=== PATIENT | female | born 1980 | race African-American/Black ===

== ENCOUNTER 2021-07-04 20:10 | Emergency (ER) | payer BC ==
[~2021-07-04] VITALS: Ht 167.6 cm; Wt 81.6 kg
--- NOTE | 2021-07-04 20:25 | NUR ---
PT AMBULATED TO ER C/O AUDITORY HALLUCINATIONS FOR SEVERAL YEARS BUT NO VISUAL HALLUCINATIONS, DENIES SI. A/O X3, NO SOB OR LABORED BREATHING. DENIES CP/PRESSURE. DENIES ANY GI/ DISTRESS.
--- NOTE | 2021-07-04 20:30 | NUR ---
DR. REAVES AT BEDSIDE, MSE IN PROGRESS.
[2021-07-04] MEDS ORDERED: diphenhydrAMINE 50 MG CAPSULE PO ONE (20:45)
[2021-07-04] MEDS ORDERED: OLANZAPINE 5 MG TABLET PO ONE (20:45)
--- NOTE | 2021-07-04 20:49 | NUR ---
LAB AT BEDSIDE.
[2021-07-04 21:10] LABS: HEMATOCRIT 36.6 % (31.2-41.9); MEAN CORPUSCULAR HEMOGLOBIN 29.6 uug (24.7-32.8); MEAN CORPUSCULAR VOLUME 89.4 fL (75.5-95.3); PLATELET COUNT (AUTO) 398 K/uL (179-408)
[2021-07-04 21:14] LABS: ETHANOL < 3 MG/DL (0-0)
[2021-07-04 21:17] LABS: *BILIRUBIN,URIN NEGATIVE (NEGATIVE); *BLOOD, URINE NEGATIVE (NEGATIVE); *CLARITY,URINE CLEAR (CLEAR); *COLOR,URINE YELLOW (YELLOW); *KETONES,URINE TRACE (NEGATIVE); LEUKOCYTE ESTERASE ,URINE TRACE (NEGATIVE); NITRITE, URINE NEGATIVE (NEGATIVE); UGLUCOSE NEGATIVE (NEGATIVE)
[2021-07-04 21:20] LABS: ALANINE AMINOTRANSFERASE 19 U/L (14-59); ALKALINE PHOSPHATASE 74 U/L (50-136); ASPARTATE AMINOTRANSFERASE 9 U/L (15-37); BILIRUBIN,DIRECT 0.1 mg/dL (0.0-0.2); BILIRUBIN,TOTAL 0.2 mg/dL (0.2-1.0); CARBON DIOXIDE 30 mmol/L (21-32); CHLORIDE 101 mmol/L (98-107); CREATININE 0.7 mg/dL (0.6-1.3); GLUCOSE 81 mg/dL (74-106); POTASSIUM 3.8 mmol/L (3.5-5.1); TOTAL PROTEIN, SERUM 8.3 g/dL (6.4-8.2); UREA NITROGEN, BLOOD 7 mg/dL (7-18)
[2021-07-04] MEDS ORDERED: OLANZAPINE 5 MG TABLET ONE (21:25)
[2021-07-04] MEDS ORDERED: diphenhydrAMINE 50 MG CAPSULE ONE (21:26)
[2021-07-04 21:36] LABS: ACETAMINOPHEN < 2.0 ug/mL (10-30)
[2021-07-04 21:55] LABS: BACTERIA,URINE FEW /HPF (NONE SEEN); RBC,URINE 0-3 /HPF (0-3); SQUAMOUS EPITHELIAL CELL,UR MODERATE /HPF (NONE SEEN)
--- NOTE | 2021-07-04 22:19 | NUR ---
PT IS IN BED, EYES CLOSED. BREATHING EVEN AND UNLABORED.
[2021-07-04 22:20] LABS: *AMPHETAMINE, URINE POSITIVE (NEGATIVE); *CANNABINOID, URINE NEGATIVE (NEGATIVE); *COCCAINE, URINE NEGATIVE (NEGATIVE); *OPIATE, URINE NEGATIVE (NEGATIVE); *PHENCYCLIDINE SCREEN,URINE NEGATIVE (NEGATIVE)
--- NOTE | 2021-07-04 23:17 | NUR ---
FAXED OVER CLINICAL SUMMARY TO [facility], SPOKE WITH ALMITA AND WE WILL WAIT FOR CALL BACK FROM [facility].
--- NOTE | 2021-07-05 00:42 | NUR ---
F/U WITH [facility], ALMITA HAS NOT RECEIVED ANY UPDATES FROM [facility].
--- NOTE | 2021-07-05 02:06 | NUR ---
PT AMBULATED TO RESTROOM, STEADY GAIT. DENIES ANY PAIN/DISCOMFORT.
--- NOTE | 2021-07-05 03:01 | NUR ---
CALLED [facility] AGAIN TO FOLLOW UP, ALMA RECIO, "THE PT'S CHART IS 2ND TO BE REVIEWED, THEY ARE REVIEWING IT RIGHT NOW".
--- NOTE | 2021-07-05 06:23 | NUR ---
Spoke with Poonam from [facility] for update, she states that their system is currently down.
--- NOTE | 2021-07-05 07:05 | NUR ---
Gave report to Lian RAMSAY. Pt is sleeping in bed, no distress noted. No labored breathing, no changes in LOC.
--- NOTE | 2021-07-05 07:08 | NUR ---
Recieved pt resting in bed W/ both eyes closed, NAD noted.
--- NOTE | 2021-07-05 08:40 | NUR ---
Spoke to Intake at [facility], per her statement they are waiting for nursing supervisor stave finishing approval. Pt resting comfortably, TEMI noted.
--- NOTE | 2021-07-05 09:00 | NUR ---
Pt is awake denies SI/HI, states willing to go to vol admit. Breakfast tray provided, ate 100%. No acute distress at this time.
--- NOTE | 2021-07-05 09:05 | NUR ---
Pt remaines accepting of going on volunteer bases to [facility], if they have bed available.
--- NOTE | 2021-07-05 11:09 | NUR ---
Spoke to Karan Willingham LCSW, regarding pt's placement.
--- NOTE | 2021-07-05 13:07 | NUR ---
Devyn GARDNERW spoke to Pt regarding placement.
[2021-07-05] MEDS ORDERED: OLANZAPINE 5 MG TABLET PO ONE (13:15)
[2021-07-05] MEDS ORDERED: OLANZAPINE 5 MG TABLET ONE (13:30)
--- NOTE | 2021-07-05 13:33 | NUR ---
PT's clinical faxed to [facility].
--- NOTE | 2021-07-05 13:40 | NUR ---
Spoke to Sandra from [facility], she requested to have test to be done. Urine collected and taken to LAB, awaiting results.
[2021-07-05 14:24] LABS: *URINE HCG, QUAL NEGATIVE (NEGATIVE)
--- NOTE | 2021-07-05 14:57 | NUR ---
Results faxed to Sandra(Intake for [facility]), awaiting for possible admit info. Pt is sleeping w/ both eyes closed, NAD noted.
--- NOTE | 2021-07-05 15:15 | NUR ---
Sandra from Intake called and info provided for pt to be admitted to [facility], room 142A. Peer to peer report call [phone] after 1700.
--- NOTE | 2021-07-05 15:49 | NUR ---
Placed a call to [facility] ambulance, no tranport available. called [facility], [facility] ambulance companies no transport available. Able to get S tranfer from [facility] for [address].
--- NOTE | 2021-07-05 18:05 | NUR ---
Report given to Manuel Miller in [facility] for pt's volunteerly admit.. Pt agreed to the transfer and signed consent.
--- NOTE | 2021-07-05 19:26 | NUR ---
pt awaiting transport to [facility] in [place].
--- NOTE | 2021-07-05 19:46 | NUR ---
report given to Divina Howard for pt being transferred to [facility] in [place], pt on a voluntary hold.
== END 2021-07-05 19:49 ==
LOC: ER 20:10
DX: F20.9 Schizophrenia, unspecified (principal); Z82.49 Family history of ischemic heart disease and other diseases of the circulatory system; Z20.822 Contact with and (suspected) exposure to COVID-19; F15.10 Other stimulant abuse, uncomplicated
CPT/HCPCS: 36415; 80048; 80076; 80299; 80307; 80320; 81001; 84703; 85025; 87426; 99285; Q0163; U0003; A4663; G0480